=== PATIENT | male | born 1970 | race Caucasian/White ===

== ENCOUNTER → 2017-08-07 15:18 | Outpatient (REF) | payer MEDICAID, SELFPAY ==
[2017-08-07 18:34] LABS: Basophils % 0.4 % (0.1-2.0); Eosinophils # 0.2 K/mm3 (0.0-0.4); Eosinophils % 2.5 % (0.1-12.0); Lymphocytes # 3.2 K/mm3 (0.7-4.5); Lymphocytes % 36.4 K/mm3 (10-50); Mean Corpuscular HGB Conc 34.1 g/dL (31.8-35.4); Mean Corpuscular Hemoglobin 28.8 pg (27.0-31.2); Mean Corpuscular Volume 84.5 fl (80-94); Mean Platelet Volume 7.5 fl (7.4-10.4); Monocytes # 0.5 K/mm3 (0.1-1.0); Monocytes % 5.7 % (1.7-9.3); Neutrophils # 4.8 K/mm3 (1.8-7.8); Neutrophils % 54.9 % (37.0-80.0); Platelet Count 385 K/mm3 (142-424); Red Blood Count 5.56 M/mm3 (4.60-6.20); Red Cell Distribution Width 12.7 % (11.5-17.5); White Blood Count 8.8 K/mm3 (4.8-10.8)
[2017-08-07 19:06] LABS: Hemoglobin A1C 7.9 % (0.0-7.0)
[2017-08-07 19:11] LABS: Alanine Aminotransferase 67 U/L (12-78); Albumin Level 4.4 gm/dL (3.4-5.0); Albumin/Globulin Ratio 1.5 (1.1-1.8); Alkaline Phosphatase 64 U/L (46-116); Anion Gap 16.6 mEq/L (5-15); Aspartate Amino Transferase 28 U/L (15-37); Bilirubin,Total 0.5 mg/dL (0.2-1.0); Blood Urea Nitrogen 19 mg/dL (7-18); Calcium 9.5 mg/dL (8.5-10.1); Carbon Dioxide 24 mmol/L (21.0-32.0); Chloride 102 mmol/L (98-107); Chol/HDL Ratio 3.8 (1-3.5); Cholesterol 113 mg/dL (140-200); Creatinine,Serum 1.01 mg/dL (0.70-1.30); Estimated Glomerular Filt Rate 79 ml/min (>60); GFR (African American) 96 ML/MIN (>60); Glucose 107 mg/dL (74-106); HDL Cholesterol 30 mg/dL (27-67); LDL Cholesterol 69 mg/dL (0-130); Potassium 4.6 mmoL/L (3.5-5.1); Sodium 138 mmol/L (136-145); T4 (Thyroxine) 8.3 ug/dl (4.7-13.3); Thyroid Stimulating Hormone 1.33 uIU/ml (0.358-3.740); Total Protein,Serum 7.4 gm/dL (6.4-8.2); Triglycerides 72 mg/dL (30-200); VLDL Cholesterol 14 mg/dL (0-40)
[2017-08-09 18:28] LABS: Vitamin D 25 Hydroxy 37.4 ng/mL (30.0-100.0)
== END ==
LOC: LAB 15:18
PROVIDERS: Visit Provider Physician Assistant
DX: E11.42 Type 2 diabetes mellitus with diabetic polyneuropathy (principal); E78.5 Hyperlipidemia, unspecified
CPT/HCPCS: 80053; 80061; 82652; 83036; 84436; 84443; 85025

== ENCOUNTER → 2018-03-25 07:41 | Outpatient (CLI) | payer MEDICAID, SELFPAY ==
--- NOTE | 2018-03-25 07:42 | CT_ITS ---
CT abdomen pelvis wo con CLINICAL INDICATION: Left flank pain ITS.REASON: KIDNEY STONES ORDERING PHYSICIAN: Macario Lucas MD PATIENT AGE: 47 years COMPARISON: 09/08/2015 TECHNIQUE: Axial images obtained with sagittal and coronal reformats. All CT scans at the facility use one or more dose reduction, viz: automated exposure control, ma/kV adjustment per patient size (including targeted exams where dose is matched to indication, i.e. head), or iterative reconstruction technique. PROCEDURE: Oral Contrast: None IV Contrast: None . FINDINGS: No acute finding in the lung bases. There is mild diffuse fatty liver infiltration. There is a area of ill-defined hyperdensity along the left hepatic lobe inferiorly just lateral to the gallbladder fossa measuring 17 mm and may be due to focal fatty sparing have an a similar appearance on older exam. There are gallstones present. At least one stone is present in the proximal cystic duct region of the gallbladder at 3 mm. Common bile duct is normal in caliber. No gallbladder wall thickening or pericholecystic inflammatory changes apparent. Spleen, adrenal glands, and pancreas are unremarkable. There are nonobstructing bilateral renal calculi measuring up to 6 mm in the lower pole on the left and 4 mm in the lower pole on the right. No hydronephrosis. No ureteral calculi. No urinary bladder calculi. No intestinal obstruction or free air. Scattered small lymph nodes are present in the mesentery's. There is a small umbilical hernia containing fat. The appendix has an unremarkable appearance. No evidence of diverticulitis. No pelvic mass abnormal fluid collection or focal inflammatory changes pelvis. There are bilateral renal hernias which contain fat. There is grade 1 spondylitic spondylolisthesis of L5 on S1 with degenerative disc disease at that level. IMPRESSION: 1. Nonobstructing bilateral renal calculi. 2. Cholelithiasis with a 3 mm stone in the proximal aspect of the cystic duct. 3. Bilateral inguinal hernias containing fat
== END ==
PROVIDERS: PCP Physician Assistant; Visit Provider Urology
DX: N20.0 Calculus of kidney (principal)
CPT/HCPCS: 74176

== ENCOUNTER → 2018-08-03 07:53 | Outpatient (CLI) | payer MEDICAID, SELFPAY ==
--- NOTE | 2018-08-03 07:55 | US_ITS ---
US gallbladder COMPARISON: Ultrasound right upper quadrant 10/09/2015 HISTORY:Right upper quadrant pain recent, lithotripsy procedure 2 weeks ago Sagittal, transverse and decubitus imaging of the gallbladder was performed. 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 There are calcified gallstones with acoustic shadowing within the Phrygian cap location of the gallbladder. The common bile draped is normal caliber. The gallbladder wall is normal thickness. Liver: The liver is normal size and shows overall increased somewhat coarsened echogenicity consistent with prominent fatty infiltration. Pancreas: The pancreas is normal size with normal echogenicity. Right kidney: Right kidney measures 11.2 x 5.3 x 8.4 cm and appears sonographically normal. IMPRESSION: Cholelithiasis along with diffuse fatty liver
== END ==
PROVIDERS: PCP Emergency Medicine; Visit Provider Surgery
DX: R10.11 Right upper quadrant pain (principal)
CPT/HCPCS: 76705

== ENCOUNTER → 2018-08-10 10:11 | Outpatient (CLI) | payer MEDICAID, SELFPAY ==
[2018-08-10 10:28] LABS: Basophils # 0.1 K/mm3 (0-0.2); Basophils % 0.8 % (0.1-2.0); Eosinophils # 0.3 K/mm3 (0.0-0.4); Eosinophils % 3.8 % (0.1-12.0); Hematocrit 46.6 % (42.0-52.0); Hemoglobin 15.2 g/dL (14.1-18.0); Lymphocytes # 2.5 K/mm3 (0.7-4.5); Lymphocytes % 32.4 % (10-50); Mean Corpuscular HGB Conc 32.6 g/dL (31.8-35.4); Mean Corpuscular Hemoglobin 28.8 pg (27.0-31.2); Mean Corpuscular Volume 88.4 fl (80-94); Monocytes # 0.4 K/mm3 (0.1-1.0); Monocytes % 5.4 % (1.7-9.3); Neutrophils # 4.4 K/mm3 (1.8-7.8); Neutrophils % 57.6 % (37.0-80.0); Platelet Count 379 K/mm3 (142-424); Red Blood Count 5.27 M/mm3 (4.60-6.20); Red Cell Distribution Width 12.4 % (11.5-17.5); White Blood Count 7.6 K/mm3 (4.8-10.8)
[2018-08-10 12:17] LABS: Alanine Aminotransferase 55 U/L (12-78); Albumin Level 4.2 gm/dL (3.4-5.0); Albumin/Globulin Ratio 1.4 (1.1-1.8); Alkaline Phosphatase 83 U/L (46-116); Aspartate Amino Transferase 20 U/L (15-37); Bilirubin,Total 0.5 mg/dL (0.2-1.0); Blood Urea Nitrogen 22 mg/dL (7-18); Calcium 9.5 mg/dL (8.5-10.1); Carbon Dioxide 27 mmol/L (21.0-32.0); Chloride 101 mmol/L (98-107); Creatinine,Serum 1.21 mg/dL (0.70-1.30); Estimated Glomerular Filt Rate 64 ml/min (>60); GFR (African American) 77 ML/MIN (>60); Globulin 3.1 gm/dl (1.3-3.2); Glucose 227 mg/dL (74-106); Sodium 139 mmol/L (136-145); Total Protein,Serum 7.3 gm/dL (6.4-8.2)
== END ==
PROVIDERS: PCP Emergency Medicine; Visit Provider Surgery
DX: K82.9 Disease of gallbladder, unspecified (principal)
CPT/HCPCS: 36415; 80053; 85025

== ENCOUNTER → 2018-08-25 11:35 | Outpatient (CLI) | payer MEDICAID, SELFPAY ==
--- NOTE | 2018-08-25 11:44 | XR_ITS ---
XR KUB HISTORY: ITS.REASON: Kidney Stones ORDERING PHYSICIAN: Macario Lucas MD PATIENT AGE: 48 years COMPARISON: 08/25/2018 FINDINGS: There is a 9 x 1 mm stone overlying the lower pole the left kidney unchanged. No ureteral calculi evident. Right-sided pelvic calcification noted. IMPRESSION: No change left nephrolithiasis
== END ==
PROVIDERS: PCP Emergency Medicine; Visit Provider Urology
DX: N20.0 Calculus of kidney (principal)
CPT/HCPCS: 74018

== ENCOUNTER 2018-09-02 07:59 | Day surgery (SDC) | payer MEDICAID, SELFPAY ==
[2018-09-01 12:46] VITALS: BMI 35.2
[2018-09-02] VITALS (13 sets, daily range): BP systolic 111–161; BP diastolic 71–88; PULSE 76–94; RESP 14–18; TEMP 36.2–43; O2SAT 94–98
--- NOTE | 2018-09-02 08:50 | P.PN_ITS ---
[facility] Anesthesia Checklist - Patient Identification Patient Identification: Arm Band, Verbal (Name & ) - Structural Data Admitted From: Home Planned Operative Procedure/s: lap choly Consent for Planned Operative Procedure(s) Verified: Yes Verified Documents: History and Physical - NPO Status Verified Time NPO: 00:00 - Additional verifications Patient : No Anesthesia Reactions: No Hx Blood Transfusions: No Blood Transfusion Reaction: No Cephalosporin Allergy: No - Cardiovascular Assessment Heart Sounds: S1 & S2 Pulse Strength: Baseline Pulse Rhythm: Regular Peripheral Edema: No - Airway Assessment C-Spine Mobility Assessed: Yes TMJ Mobility Assessed: Yes Dentition: Good Dentition - Neurological Assessment Level of Consciousness: Awake, Alert, Appropriate, Inappropriate Hx Seizures: No Numbness or tingling in extremities: No - Anesthesia Plan Anesthesia Risk discussed: Yes Anesthesia Plan: Verified ASA Class: III Anesthesia Type: General [facility] History I have reviewed the patient's past medical history: Yes Medical History: Reports:: Diabetes Mellitus Type 2, Hyperlipidemia, Hypertension Denies:: Cancer, Diabetes Mellitus Type 1, Internal Pacemaker, MRSA, Seizures *Have you ever received a pneumonia vaccine?: No *Have you received a flu vaccine this season?: No Other Medical History: Denies: Blood Transfusion Reaction Laterality Cases: Bilateral: Other Other Surgeries: Yes: No Previous Surgery, Other. No: Pacemaker Amputation: No Fractures: No - *Social History Educational Level: Attended High School Smoking Status: Never smoker Alcohol Intake: never Alcohol Intake Frequency:: holidays/special occasions only Substance Use Type: denies use *Occupational Status:: employed Housing: house Household Members: spouse *Travel in the last 8 weeks: None - Psychiatric History Expresses thoughts of harming self/others: None Suicide Plan Description: No Plan Family Hx:: Cancer, Coronary Artery Disease, Heart Attack, Diabetes, Stroke
[2018-09-02 09:16] LABS: POC Glucose,Bedside 182 (70-110)
--- NOTE | 2018-09-02 10:49 | HMH.OPNOTE ---
Date of procedure: 09/02/18 Pre-op Diagnosis:: Symptomatic gallstones Post-op Diagnosis:: Same Procedure performed:: 1. Laparoscopic cholecystectomy 2. Open umbilical hernia repair without mesh Surgeon:: Bennett Coleman MD SYRUP FILTERER:: Cristhian Sneed Anesthesia: PAULINO Estimated blood loss (mL): 20 Clinical Note:: Patient is a 48-year-old white male who was originally referred by Dr. Macario Lucas for hernias. Patient has a history of kidney stones. He had undergone CT scan of the abdomen and pelvis for follow-up of kidney stones. This incidentally revealed gallstones as well as bilateral fat-containing inguinal hernias. He was sent for surgical consultation. Patient states that he has a knot been around his umbilical area and has somewhat of a protrusion. He denies any symptoms in the groin/inguinal areas. He does state that he has some occasional nausea. He denies any postprandial pain. When I saw him I had more concerns over the gallbladder given his symptoms of nausea, abdominal pain, and CT scan findings. I had him undergo a gallbladder ultrasound. This reveals gallstones with Phyringian Cap Containing stones with normal common bile duct. Patient does work largely in manual labor. I have discussed the options with the patient. Given the symptoms and imaging findings plan was made to proceed with laparoscopic cholecystectomy with hernia repair at the umbilicus. Consideration was being given for possible placement of mesh pending the size of the hernia and the degree of inflammation of the gallbladder. Operative findings:: He had a distended gallbladder with inflammatory changes particularly around the neck and Mendez's pouch of the gallbladder. He had a rather small hernia containing omentum with a defect about 1 cm at the umbilicus. Operative note:: Consent was obtained and patient was taken to the operating room. He was preoperatively given antibiotic. In the operating room he was placed in a supine position. General anesthesia induced via endotracheal. His abdomen was prepped and draped in the standard surgical fashion. He had a small palpable hernia at the umbilical area. Subumbilical skin incision was made. Dissection was carried down through subcutaneous tissues and the subdermal area. Peritoneum was incised and the hernia sac was dissected free from the umbilical sub-dermis. There was omentum within the hernia sac. Extraneous peritoneum of the hernia sac was dissected back to the fascial edge using electrocautery. 0 Vicryl fascial stay sutures were placed and Blunt Trocar Was Inserted through the Defect. CO2 Pneumoperitoneum Was Achieved to 15 Mm of. Intraperitoneal Contents Were Visualized. He Was Positioned in Reverse Trendelenburg with Left Side down. A Couple of 5 Mm Trochars Were Inserted in the Right Upper Abdomen. A 10 mm trocar was inserted in the epigastrium. Gallbladder was grasped and retracted anteriorly and superiorly over the dome of the liver. Gallbladder was rather distended and chronically inflamed appearing. He had a redundant distended Mendez's pouch of the gallbladder. This was grasped and retracted anterior laterally. Blunt dissection was carried out at the neck of the gallbladder bluntly incising the visceral peritoneum. The cystic duct appeared to be rather chronically inflamed and somewhat fibrotic. Cystic duct and cystic artery were clearly identified and isolated. Cystic duct was multiply clipped and then divided. Cystic artery was carefully coagulated with HERMILO ultrasonic harmonic heydi and divided. Gallbladder was dissected free from the liver in a retrograde fashion using HERMILO ultrasonic harmonic heydi. Gallbladder was placed within an Endo Catch retrieval device and removed from the peritoneal cavity via the umbilical trocar site. Gallbladder fossa was then inspected for hemostasis which was assured. Limited irrigation was carried out of the gallbladder fossa and perihepatic spa
--- NOTE | 2018-09-02 10:52 | P.OP_ITS ---
Date of procedure: 09/02/18 Pre-op Diagnosis:: Symptomatic gallstones Post-op Diagnosis:: Same Procedure performed:: 1. Laparoscopic cholecystectomy 2. Open umbilical hernia repair without mesh Surgeon:: Bennett Coleman MD SUBASSEMBLIES WIRER:: Cristhian Sneed Anesthesia: PAULINO Estimated blood loss (mL): 20 Clinical Note:: Patient is a 48-year-old white male who was originally referred by Dr. Macario Lucas for hernias. Patient has a history of kidney stones. He had undergone CT scan of the abdomen and pelvis for follow-up of kidney stones. This incidentally revealed gallstones as well as bilateral fat-containing inguinal hernias. He was sent for surgical consultation. Patient states that he has a knot been around his umbilical area and has somewhat of a protrusion. He denies any symptoms in the groin/inguinal areas. He does state that he has some occasional nausea. He denies any postprandial pain. When I saw him I had more concerns over the gallbladder given his symptoms of nausea, abdominal pain, and CT scan findings. I had him undergo a gallbladder ultrasound. This reveals gallstones with Phyringian Cap Containing stones with normal common bile duct. Patient does work largely in manual labor. I have discussed the options with the patient. Given the symptoms and imaging findings plan was made to proceed with laparoscopic cholecystectomy with hernia repair at the umbilicus. Consideration was being given for possible placement of mesh pending the size of the hernia and the degree of inflammation of the gallbladder. Operative findings:: He had a distended gallbladder with inflammatory changes particularly around the neck and Mendez's pouch of the gallbladder. He had a rather small hernia containing omentum with a defect about 1 cm at the umbilicus. Operative note:: Consent was obtained and patient was taken to the operating room. He was preoperatively given antibiotic. In the operating room he was placed in a supine position. General anesthesia induced via endotracheal. His abdomen was prepped and draped in the standard surgical fashion. He had a small palpable hernia at the umbilical area. Subumbilical skin incision was made. Dissection was carried down through subcutaneous tissues and the subdermal area. Peritoneum was incised and the hernia sac was dissected free from the umbilical sub-dermis. There was omentum within the hernia sac. Extraneous peritoneum of the hernia sac was dissected back to the fascial edge using electrocautery. 0 Vicryl fascial stay sutures were placed and Blunt Trocar Was Inserted through the Defect. CO2 Pneumoperitoneum Was Achieved to 15 Mm of. Intraperitoneal Contents Were Visualized. He Was Positioned in Reverse Trendelenburg with Left Side down. A Couple of 5 Mm Trochars Were Inserted in the Right Upper Abdomen. A 10 mm trocar was inserted in the epigastrium. Gallbladder was grasped and retracted anteriorly and superiorly over the dome of the liver. Gallbladder was rather distended and chronically inflamed appearing. He had a redundant distended Mendez's pouch of the gallbladder. This was grasped and retracted anterior laterally. Blunt dissection was carried out at the neck of the gallbladder bluntly incising the visceral peritoneum. The cystic duct appeared to be rather chronically inflamed and somewhat fibrotic. Cystic duct and cystic artery were clearly identified and isolated. Cystic duct was multiply clipped and then divided. Cystic artery was carefully coagulated with HERMILO ultrasonic harmonic heydi and divided. Gallbladder was dissected free from the liver in a retrograde fashion using HERMILO ultrasonic harmonic heydi. Gallbladder was placed within an Endo Catch retrie
--- NOTE | 2018-09-02 11:02 | HMH.ANESI ---
[facility] Anesthesia Record Part I Intake, IV Amount: 1,600 Estimated blood loss (mL): 10 Urine output (mL): 0 Blood Pressure: 161/86 SaO2: 95 Pulse Rate: 93 Respiratory Rate: 16 Temperature: 97.9 F Patient is:: Drowsy, Stable Stable to PACU at:: 11:00
--- NOTE | 2018-09-02 11:03 | HMH.ANESII ---
[facility] Anesthesia Record Part II Discharge Time: 11:30 Destination: [facility] PACU nurse assessment reviewed?: Yes Patient Condition:: Good Anesthesia Complications:: None Swallowing reflex intact?: Yes Cyanosis?: No
--- NOTE | 2018-09-02 11:04 | P.PN_ITS ---
[facility] Anesthesia Record Part II Discharge Time: 11:30 Destination: [facility] PACU nurse assessment reviewed?: Yes Patient Condition:: Good Anesthesia Complications:: None Swallowing reflex intact?: Yes Cyanosis?: No
[2018-09-02 11:20] LABS: POC Glucose,Bedside 186 (70-110)
--- NOTE | 2018-09-02 13:46 | SUR.PHASEI ---
1100-Detailed report received from Micaela & SIsatuClinraymond. Patient is very awake and talking with no complaints. 1115- Pt very awake. Complaints of dry mouth.
== END 2018-09-02 13:10 | disposition home or self-care (01) ==
LOC: OR 08:00
PROVIDERS: PCP Emergency Medicine; Visit Provider Surgery
PROC: 0FT44ZZ Resection of Gallbladder, Percutaneous Endoscopic Approach (ICD-10-PCS; CPT 47562; principal; 2018-09-02 09:45)
DX: K42.9 Umbilical hernia without obstruction or gangrene (principal); Z87.442 Personal history of urinary calculi; K80.80 Other cholelithiasis without obstruction
CPT/HCPCS: 49585; 47562; 82962; 96374; J2405; J2710

== ENCOUNTER → 2018-12-04 12:01 | Outpatient (CLI) | payer MEDICAID, SELFPAY ==
--- NOTE | 2018-12-04 12:04 | XR_ITS ---
XR knee LT 4V HISTORY: ITS.REASON: knee pain ORDERING PHYSICIAN: Mirna Almonte APRN PATIENT AGE: 48 years COMPARISON: None FINDINGS: No fracture or dislocation. No lytic or blastic change. Normal mineralization. No significant arthritic changes evident. There is a fabella noted. There is a small metallic object likely a foreign body within the soft tissues just lateral to the proximal fibula measuring 1 cm in length. It is approximately 2 cm deep to the surface of the skin IMPRESSION: Probable foreign body otherwise grossly negative left knee
== END ==
PROVIDERS: PCP Nurse Practitioner Family; Visit Provider Nurse Practitioner Family
DX: M25.562 Pain in left knee (principal)
CPT/HCPCS: 73564

== ENCOUNTER → 2019-03-16 10:34 | Outpatient (CLI) | payer MEDICAID, SELFPAY ==
--- NOTE | 2019-03-16 10:43 | XR_ITS ---
PROCEDURE: XR KUB CLINICAL INDICATION: kidney stones COMPARISON: ABDPELWO CT abdomen pelvis wo con from 03/25/2018 FINDINGS: Nonspecific bowel gas pattern. There is a 3 mm stone in the lower pole of the left kidney. Previously min this measured 6 mm. IMPRESSION: Left nephrolithiasis Dictated by: Dash Rosado MD 03/16/2019 11:00 Signed by: <Electronically signed by Dash Rosado MD in [place]> 03/16/2019 11:00
== END ==
PROVIDERS: PCP Emergency Medicine; Visit Provider Urology
DX: N20.0 Calculus of kidney (principal)
CPT/HCPCS: 74018

== ENCOUNTER → 2020-07-04 15:06 | Outpatient (CLI) | payer OTHER, SELFPAY ==
[2020-07-04 16:03] LABS: Basophils % 0.6 % (0.1-2.0); Eosinophils # 0.3 K/mm3 (0.0-0.4); Eosinophils % 4.1 % (0.1-12.0); Hematocrit 49.4 % (42.0-52.0); Hemoglobin 16.7 g/dL (14.1-18.0); Lymphocytes # 2.2 K/mm3 (0.7-4.5); Lymphocytes % 32.1 % (10-50); Mean Corpuscular HGB Conc 33.8 g/dL (31.8-35.4); Mean Corpuscular Hemoglobin 30.4 pg (27.0-31.2); Mean Corpuscular Volume 89.9 fl (80-94); Mean Platelet Volume 9.1 fl (7.4-10.4); Monocytes # 0.5 K/mm3 (0.1-1.0); Monocytes % 7.3 % (1.7-9.3); Neutrophils # 3.9 K/mm3 (1.8-7.8); Neutrophils % 55.9 % (37.0-80.0); Platelet Count 370 K/mm3 (142-424); White Blood Count 6.9 K/mm3 (4.8-10.8)
[2020-07-04 16:51] LABS: Alanine Aminotransferase 44 U/L (12-78); Albumin Level 4.7 g/dl (3.5-5.0); Albumin/Globulin Ratio 1.6 (1.1-1.8); Alkaline Phosphatase 78 U/L (38-126); Anion Gap 13.7 mEq/L (5-15); Aspartate Amino Transferase 33 U/L (17-59); Bilirubin,Total 0.7 mg/dl (0.2-1.3); Blood Urea Nitrogen 22 mg/dl (9-20); Calcium 10.4 mg/dl (8.4-10.2); Carbon Dioxide 27 mmol/L (22.0-30.0); Chloride 102 mmol/L (98-107); Chol/HDL Ratio 3.8 (1-3.5); Cholesterol 109 mg/dl (140-200); Estimated Glomerular Filt Rate 79 ml/min (>60); GFR (African American) 96 ML/MIN (>60); Globulin 2.9 g/dL (1.3-3.2); Glucose 223 mg/dl (74-100); HDL Cholesterol 29 mg/dl (40-60); Potassium 5.7 mmoL/L (3.5-5.1); Sodium 137 mmol/L (136-145); Total Protein,Serum 7.6 g/dl (6.3-8.2); Triglycerides 79 mg/dl (30-150); VLDL Cholesterol 16 mg/dL (0-40)
[2020-07-04 17:02] LABS: Direct LDL Cholesterol 75.01 mg/dL (100-129)
[2020-07-04 17:07] LABS: 25-OH Vitamin D, Total 45.5 ng/mL (30-100)
[2020-07-04 17:08] LABS: Free T4 (Free Thyroxine) 1.38 ng/dl (0.78-2.19)
[2020-07-04 17:13] LABS: Hemoglobin A1C 9.7 % (4.0-6.0)
[2020-07-04 17:22] LABS: Thyroid Stimulating Hormone 1.43 uIU/mL (0.465-4.68)
== END ==
PROVIDERS: Visit Provider Physician Assistant
DX: E11.40 Type 2 diabetes mellitus with diabetic neuropathy, unspecified (principal); E11.9 Type 2 diabetes mellitus without complications; Z79.84 Long term (current) use of oral hypoglycemic drugs
CPT/HCPCS: 80053; 80061; 82043; 82306; 83036; 84439; 84443; 85025

== ENCOUNTER → 2020-07-13 15:00 | Outpatient (CLI) | payer OTHER, SELFPAY ==
[2020-07-13 16:07] LABS: Anion Gap 14.2 mEq/L (5-15); Blood Urea Nitrogen 20 mg/dl (9-20); Calcium 9.8 mg/dl (8.4-10.2); Carbon Dioxide 26 mmol/L (22.0-30.0); Chloride 98 mmol/L (98-107); Estimated Glomerular Filt Rate 71 ml/min (>60); GFR (African American) 86 ML/MIN (>60); Glucose 252 mg/dl (74-100); Potassium 5.2 mmoL/L (3.5-5.1); Sodium 133 mmol/L (136-145)
== END ==
PROVIDERS: Visit Provider Physician Assistant
DX: E87.5 Hyperkalemia (principal)
CPT/HCPCS: 80048

== ENCOUNTER → 2020-08-01 14:44 | Outpatient (CLI) | payer OTHER, SELFPAY ==
[2020-08-01 16:00] LABS: Chloride 99 mmol/L (98-107); Sodium 135 mmol/L (136-145)
[2020-08-01 16:03] LABS: Blood Urea Nitrogen 20 mg/dl (9-20); Carbon Dioxide 26 mmol/L (22.0-30.0); Estimated Glomerular Filt Rate 79 ml/min (>60); GFR (African American) 96 ML/MIN (>60); Glucose 262 mg/dl (74-100)
== END ==
PROVIDERS: Visit Provider Physician Assistant
DX: R89.9 Unspecified abnormal finding in specimens from other organs, systems and tissues (principal)
CPT/HCPCS: 80048

== ENCOUNTER → 2022-03-13 06:23 | Outpatient (CLI) | payer OTHER, SELFPAY ==
[2022-03-13 13:21] LABS: Basophils # 0.1 K/mm3 (0-0.2); Basophils % 0.9 % (0.1-2.0); Eosinophils # 0.3 K/mm3 (0.0-0.4); Eosinophils % 3.4 % (0.1-12.0); Hematocrit 47.2 % (42.0-52.0); Hemoglobin 15.3 g/dL (14.1-18.0); Lymphocytes # 2.5 K/mm3 (0.7-4.5); Lymphocytes % 34.5 % (10-50); Mean Corpuscular HGB Conc 32.3 g/dL (31.8-35.4); Mean Corpuscular Hemoglobin 29.2 pg (27.0-31.2); Mean Corpuscular Volume 90.2 fl (80-94); Mean Platelet Volume 8.1 fl (7.4-10.4); Monocytes # 0.4 K/mm3 (0.1-1.0); Monocytes % 6.1 % (1.7-9.3); Neutrophils # 3.9 K/mm3 (1.8-7.8); Platelet Count 392 K/mm3 (142-424); Red Blood Count 5.23 M/mm3 (4.60-6.20); Red Cell Distribution Width 12.6 % (11.5-17.5); White Blood Count 7.1 K/mm3 (4.8-10.8)
[2022-03-13 14:00] LABS: Hemoglobin A1C 8.9 % (4.0-6.0)
[2022-03-13 14:06] LABS: Chloride 102 mmol/L (98-107)
[2022-03-13 14:07] LABS: Potassium 4.9 mmoL/L (3.5-5.1); Sodium 137 mmol/L (136-145)
[2022-03-13 14:09] LABS: Alanine Aminotransferase 41 U/L (12-78); Alkaline Phosphatase 72 U/L (38-126); Anion Gap 15.9 mEq/L (5-15); Aspartate Amino Transferase 34 U/L (17-59); Bilirubin,Total 0.3 mg/dl (0.2-1.3); Blood Urea Nitrogen 16 mg/dl (9-20); Carbon Dioxide 24 mmol/L (22.0-30.0); Cholesterol 104 mg/dl (140-200); Estimated Glomerular Filt Rate 79 ml/min (>60); GFR (African American) 95 ML/MIN (>60); Triglycerides 66 mg/dl (30-150); VLDL Cholesterol 13 mg/dL (0-40)
[2022-03-13 14:10] LABS: Albumin Level 4.6 g/dl (3.5-5.0); Calcium 9.9 mg/dl (8.4-10.2); Chol/HDL Ratio 3.3 (1-3.5); Globulin 2.3 g/dL (1.3-3.2); Glucose 188 mg/dl (74-100); HDL Cholesterol 32 mg/dl (40-60); Total Protein,Serum 6.9 g/dl (6.3-8.2)
[2022-03-13 14:23] LABS: 25-OH Vitamin D, Total 57.5 ng/mL (30-100)
[2022-03-13 14:38] LABS: Thyroid Stimulating Hormone 1.94 uIU/mL (0.465-4.68)
[2022-03-16 08:22] LABS: Direct LDL Cholesterol 59 mg/dL (100-129)
== END ==
PROVIDERS: PCP Physician Assistant; Visit Provider Physician Assistant
DX: E11.9 Type 2 diabetes mellitus without complications (principal); Z79.84 Long term (current) use of oral hypoglycemic drugs
CPT/HCPCS: 80053; 80061; 82043; 82306; 83036; 84443; 85025

== ENCOUNTER → 2022-05-07 10:04 | Outpatient (CLI) | payer OTHER, SELFPAY | PROVIDERS: PCP Student in an Organized Health Care Education/Training Program; Visit Provider Student in an Organized Health Care Education/Training Program | DX: U07.1 COVID-19 (principal); J32.9 Chronic sinusitis, unspecified | CPT/HCPCS: C9803; U0003; U0005 ==

== ENCOUNTER → 2022-05-25 10:46 | Outpatient (CLI) | payer OTHER, SELFPAY | PROVIDERS: PCP Emergency Medicine; Visit Provider Physician Assistant | DX: E11.40 Type 2 diabetes mellitus with diabetic neuropathy, unspecified (principal) ==

== ENCOUNTER → 2022-05-27 12:40 | Outpatient (CLI) | payer OTHER, SELFPAY ==
[2022-05-27 13:00] LABS: Microscopic, Urine URINE MICROSCOPIC (MICROSCOPIC)
[2022-05-27 13:42] LABS: Basophils # 0.1 K/mm3 (0-0.2); Basophils % 0.8 % (0.1-2.0); Eosinophils # 0.3 K/mm3 (0.0-0.4); Eosinophils % 3.2 % (0.1-12.0); Hematocrit 43.5 % (42.0-52.0); Hemoglobin 14.1 g/dL (14.1-18.0); Lymphocytes # 2.8 K/mm3 (0.7-4.5); Lymphocytes % 28.2 % (10-50); Mean Corpuscular HGB Conc 32.3 g/dL (31.8-35.4); Mean Corpuscular Hemoglobin 28.7 pg (27.0-31.2); Mean Corpuscular Volume 88.8 fl (80-94); Monocytes # 0.6 K/mm3 (0.1-1.0); Monocytes % 5.5 % (1.7-9.3); Neutrophils # 6.2 K/mm3 (1.8-7.8); Neutrophils % 62.2 % (37.0-80.0); Platelet Count 323 K/mm3 (142-424); Red Cell Distribution Width 12.7 % (11.5-17.5); White Blood Count 9.9 K/mm3 (4.8-10.8)
[2022-05-27 13:54] LABS: Appearance,Urine CLEAR (Clear); Bilirubin,Urine Negative (Negative); Blood, Urine Negative (Negative); Color,Urine YELLOW (Yellow); Glucose,Urine (UA) Negative (Negative); Ketones,Urine Negative (Negative); Leukocyte Esterase,Urine Negative (Negative); Nitrate,Urine Negative (Negative); PH,Urine 5.5 (5.0-8.5); Protein,Urine Negative (Negative); Urobilinogen,Urine 0.2 EU/dl (0.2)
[2022-05-27 14:10] LABS: Microalbumin/Creatinine Ratio 19.8
[2022-05-27 14:15] LABS: Albumin Level 4.3 g/dl (3.5-5.0); Anion Gap 17.4 mEq/L (5-15); Blood Urea Nitrogen 19 mg/dl (9-20); Calcium 9.8 mg/dl (8.4-10.2); Carbon Dioxide 27 mmol/L (22.0-30.0); Chloride 102 mmol/L (98-107); Estimated Glomerular Filt Rate 71 ml/min (>60); GFR (African American) 85 ML/MIN (>60); Glucose 89 mg/dl (74-100); Phosphorous 3.4 mg/dl (2.5-4.5); Potassium 4.4 mmoL/L (3.5-5.1); Sodium 142 mmol/L (136-145)
[2022-05-27 14:16] LABS: Bacteria,Urine Trace /lpf; Creatinine,Urine Random 85 mg/dL (Not Estab.); Squamous Epithelial Cell,Urine Occasional #/hpf (0-5); WBC,Urine Occasional #/hpf (0-3)
== END ==
PROVIDERS: PCP Physician Assistant; Visit Provider Internal Medicine Nephrology
DX: R80.9 Proteinuria, unspecified (principal); E55.9 Vitamin D deficiency, unspecified
CPT/HCPCS: 36415; 80069; 81001; 82043; 82306; 82570; 83970; 84155; 85025

== ENCOUNTER → 2022-05-27 13:24 | Outpatient (POV) | payer OTHER, SELFPAY | PROVIDERS: Visit Provider Internal Medicine Nephrology | DX: Z00.00 Encounter for general adult medical examination without abnormal findings (principal) ==

== ENCOUNTER 2023-10-08 18:40 | Outpatient (CLI) | payer SELFPAY ==
[2023-10-08 18:29] LABS: Basophils # 0.1 K/mm3 (0-0.2); Basophils % 0.7 % (0.1-2.0); Eosinophils # 0.2 K/mm3 (0.0-0.4); Eosinophils % 1.6 % (0.1-12.0); Hematocrit 49.2 % (42.0-52.0); Hemoglobin 16.4 g/dL (14.1-18.0); Lymphocytes # 2.1 K/mm3 (0.7-4.5); Lymphocytes % 20.8 % (10-50); Mean Corpuscular HGB Conc 33.4 g/dL (31.8-35.4); Mean Corpuscular Hemoglobin 30.7 pg (27.0-31.2); Mean Corpuscular Volume 92.1 fl (80-94); Mean Platelet Volume 9.4 fl (7.4-10.4); Monocytes # 0.7 K/mm3 (0.1-1.0); Monocytes % 6.6 % (1.7-9.3); Neutrophils % 70.3 % (37.0-80.0); Platelet Count 356 K/mm3 (142-424); Red Blood Count 5.34 M/mm3 (4.60-6.20); Red Cell Distribution Width 13.3 % (11.5-17.5)
[2023-10-08 18:59] LABS: Alanine Aminotransferase 56 U/L (12-78); Albumin/Globulin Ratio 1.9 (1.1-1.8); Alkaline Phosphatase 66 U/L (38-126); Anion Gap 16.4 mEq/L (5-15); Aspartate Amino Transferase 36 U/L (17-59); Bilirubin,Total 0.8 mg/dl (0.2-1.3); Blood Urea Nitrogen 21 mg/dl (9-20); Calcium 10.2 mg/dl (8.4-10.2); Carbon Dioxide 24 mmol/L (22.0-30.0); Chloride 104 mmol/L (98-107); Cholesterol 120 mg/dl (140-200); Estimated Glomerular Filt Rate 58 ml/min (>60); GFR (African American) 70 ML/MIN (>60); Globulin 2.6 g/dL (1.3-3.2); Glucose 108 mg/dl (74-100); HDL Cholesterol 30 mg/dl (40-60); Potassium 4.4 mmoL/L (3.5-5.1); Sodium 140 mmol/L (136-145); Total Protein,Serum 7.6 g/dl (6.3-8.2); Triglycerides 79 mg/dl (30-150); VLDL Cholesterol 16 mg/dL (0-40)
[2023-10-08 19:27] LABS: Direct LDL Cholesterol 81.55 mg/dL (100-129)
[2023-10-08 19:29] LABS: Prostate Specific Ag Screen 2.1 ng/ml (0.0-4.0); Thyroid Stimulating Hormone 1.38 uIU/mL (0.465-4.68)
== END 2023-10-08 23:59 ==
LOC: LAB.DROPOF 18:40
PROVIDERS: PCP Family Medicine; Visit Provider Family Medicine
DX: R30.9 Painful micturition, unspecified (principal)
CPT/HCPCS: 80053; 80061; 84443; 85025; G0103